=== PATIENT | female | born 1980 | race Caucasian/White ===

== ENCOUNTER 2018-06-21 19:29 | Inpatient (IN) | payer MEDICAID ==
[~2018-06-21] VITALS: Ht 157.5 cm; Wt 94.8 kg
[2018-06-21 19:29] VITALS: BP 126/65
--- NOTE | 2018-06-21 19:29 | NUR ---
PT ELAINE BLS. TAKEN TO BED 3
--- NOTE | 2018-06-21 19:30 | NUR ---
ELAINE. PATIENT PRESENTS TO ED WITH POST STATUS FALL, LEFT KNEE PAIN, DEPRESSION, DIZZINESS.PT WAS FOUND ON THE STREETS AND [facility] STATED THAT SHE FALL ON THE SIDE WALK. PT STATES SHE FELT SHE WAS A LITTLE DIZZY. SHE STATES SHE HAS NOT EATEN AND TOOK METH AROUND 0500. DENIES N/V/D; SKIN IS PINK/WARM/DRY; AAOX4 WITH EVEN AND STEADY GAIT WITH MINOR LIMP ON LEFT SIDE DUE TO PAIN LEVEL 4/10 ON LEFT KNEE; PT STATES SHE IS DEPRESSED DUE TO LOSING HER CHILDREN A FEW MONTHS AGO TO CPS. LUNGS CLEAR BL; HR EVEN AND REGULAR; PT DENIES ANY FEVER, CP, SOB, OR COUGH AT THIS TIME; VSS; PATIENT POSITIONED FOR COMFORT; HOB ELEVATED; BEDRAILS UP X2; BED DOWN. ER MD MADE AWARE OF PT STATUS.
[2018-06-21] MEDS ORDERED: IBUPROFEN 600 MG TAB PO ONE (19:45)
--- NOTE | 2018-06-21 19:45 | NUR ---
Dr. Licea evaluating patient at bedside.
--- NOTE | 2018-06-21 19:55 | NUR ---
LAB AT PT BEDSIDE
[2018-06-21 20:10] LABS: BASOPHILS % (AUTO) 0.5 % (0.0-2.0); EOSINOPHILS # (AUTO) 0.2 K/uL (0-0.4); HEMATOCRIT 21.8 % (36-48); LYMPHOCYTES # (AUTO) 2.3 K/uL (2.5-16.5); LYMPHOCYTES % (AUTO) 36.2 % (20.5-51.1); MEAN CORPUSCULAR HEMOGLOBIN 23 pg (27-31); MEAN CORPUSCULAR HGB CONC 31 g/dL (33-37); MEAN CORPUSCULAR VOLUME 74.8 fL (80-94); MONOCYTES # (AUTO) 0.3 K/uL (0.8-1.0); MONOCYTES % (AUTO) 4.6 % (1.7-9.3); NEUTROPHILS # (AUTO) 3.6 K/uL (1.8-7.7); NEUTROPHILS % (AUTO) 55.7 % (42.2-75.2); PLATELET COUNT (AUTO) 317 K/uL (140-450); RED BLOOD CELL COUNT(AUTO) 2.91 MIL/uL (4.20-5.40); RED CELL DISTRIBUTION WIDTH 18.9 % (11.6-13.7); WHITE BLOOD COUNT (AUTO) 6.4 K/uL (4.8-10.8)
--- NOTE | 2018-06-21 20:20 | NUR ---
PT CAME BACK FROM RADIOLOGY
[2018-06-21 20:24] LABS: HEMOGLOBIN 6.7 g/dL (12.0-16.0)
[2018-06-21 20:33] LABS: ANION GAP 13.3 (8-16); CARBON DIOXIDE 30.2 mmol/L (21-32); CREATININE 1.5 mg/dL (0.6-1.3); POTASSIUM 3.5 mmol/L (3.5-5.1)
[2018-06-21 20:46] LABS: THYROID STIMULATING HORMONE 169.99 uIU/mL (0.34-3.74)
[2018-06-21 20:53] LABS: BARBITURATE, URINE NEG. ng/ml (NEG <=200); BENZODIAZEPINE, URINE NEG. ng/mL (NEG <=200); CANNABINOID, URINE NEG. ng/mL (NEG <=50); COCAINE, URINE NEG. ng/mL (NEG <=300); OPIATE, URINE NEG. ng/mL (NEG <=2000); PHENCYCLIDINE SCREEN,URINE NEG. ng/mL (NEG <=25)
[2018-06-21 20:56] LABS: APPEARANCE,URINE SLIGHTLY HAZY (CLEAR); BLOOD, URINE TRACE (NEGATIVE); COLOR,URINE YELLOW (YELLOW); UGLUCOSE NEGATIVE (NEGATIVE)
[2018-06-21 20:57] LABS: BILIRUBIN,URINE 1+ (NEGATIVE); LEUKOCYTE ESTERASE ,URINE 3+ (NEGATIVE); NITRITE, URINE POSITIVE (NEGATIVE)
[2018-06-21 20:58] LABS: RBC,URINE 11-20 (MOD) /HPF (0-5); WBC,URINE 16-25 (MOD) /HPF (0-5)
[2018-06-21 22:35] VITALS: BP 113/51
[2018-06-21] MEDS ORDERED: ONDANSETRON 4 MG/2 ML VIAL IM/IVP PRN (22:35)
[2018-06-21] MEDS ORDERED: ACETAMINOPHEN 325 MG TAB PO PRN (22:35)
[2018-06-21] MEDS ORDERED: HYDROcodone/APAP 7.5/325 MG 1 TAB PO PRN (22:35)
[2018-06-21] MEDS ORDERED: DOCUSATE SODIUM 100 MG GELCAP PO PRN (22:35)
--- NOTE | 2018-06-21 22:38 | NUR ---
PT WENT TO CT
[2018-06-21] MEDS ORDERED: NACL 0.9% 1,000 ML IV SCH (23:00)
[2018-06-21 23:20] LABS: PROTHROMBIN TIME 10.3 secs (10.8-13.4)
--- NOTE | 2018-06-21 23:30 | NUR ---
ADMITTED A 38F FROM ER. CAME BY ARSEN DUE TO SYMPTOMATIC ANEMIA AND TOXIC ENCEPHALOPATHY. PT IS SOMEWHAT DROWSY BUT AROUSE EASILY WHEN NAME CALLED. ON TELE MONITOR -SR. ABLE TO MOVE FROM GURNEY TO BED. HAS HL ON THE RT AC#18, CLEAR AND PATENT. NO C/O ANY DISCOMFORT NOR PAIN NOTED AT THIS TIME. SKIN INTACT. PLAN OF CARE DISCUSSED AND VERBALIZED UNDERSTANDING. BED ON LOW POSITION. SIDE RAILS ARE UP X2. CALL LIGHT PLACED WITHIN EASY REACH. WILL FOLLOW UP ADMIT ORDERS AND CONTINUE TO MONITOR.
--- NOTE | 2018-06-21 23:30 | NUR ---
Patient will be admitted to care of DR. WEBSTER. Admited to TELEMETRY. Will go to room 110 B. Belongings list completed. Report to FARHANA RIVERA. PT VSS.
--- NOTE | 2018-06-21 23:30 | NUR ---
Pt report given to FARHANA RIVERA. Transfer of care at this time.PT VSS
[2018-06-22] VITALS (8 sets, daily range): BP systolic 113–154; BP diastolic 55–99
[2018-06-22 00:15] LABS: CHOL/HDL RATIO 2.9 (1-4.5); FREE T4 (FREE THYROXINE) 0.26 ng/dL (0.76-1.46); MAGNESIUM 2.2 mg/dL (1.8-2.4); PHOSPHORUS 3.9 mg/dL (2.5-4.9)
[2018-06-22] MEDS ORDERED: MECLIZINE 25 MG TAB PO PRN (00:20)
[2018-06-22] MEDS ORDERED: DEXTROSE 50% 50 ML SYR IVP PRN ×2 (00:25→08:05)
[2018-06-22] MEDS ORDERED: INSULIN LISPRO SLIDING SCALE 100 UNITS/ML VIAL SUBQ PRN (00:25)
--- NOTE | 2018-06-22 00:40 | NUR ---
HH LOW 6.7 AND 21.8 RESPECTIVELY. I UNIT PRBC STARTED AFTER VERIFIED WITH THE PT BY MIGUEL DANIELSBEAVER TRAPPER. PT MADE HIGGINS OF THE POSSIBLE REACTION TO BLOOD . VERBALIZED UNDERSTANDING. VITLA SIGNS TAKEN PRIOR TO STARTING THE BLOOD. WILL CONTINUE TO MONITOR.
[2018-06-22 01:30] LABS: THYROID STIMULATING HORMONE 216.18 uIU/mL (0.34-3.74)
--- NOTE | 2018-06-22 03:25 | NUR ---
I UNIT PRBC TRANSFUSION DONE. NO REACTION NOTED. VITAL SIGNS STABLE.
[2018-06-22] MEDS ORDERED: cefTRIAXone 1,000 MG VIAL ONE (03:26)
--- NOTE | 2018-06-22 05:30 | NUR ---
PT IS ASLEEP. NO S/S OF ANY DISCOMOFRT NOTED. WILL CONTINUE TO MONITOR.
[2018-06-22 05:58] LABS: BASOPHILS # (AUTO) 0.1 K/uL (0.00-0.22); BASOPHILS % (AUTO) 0.9 % (0.0-2.0); EOSINOPHILS # (AUTO) 0.2 K/uL (0-0.4); EOSINOPHILS % (AUTO) 3.8 % (0.0-4.0); HEMATOCRIT 25.2 % (36-48); HEMOGLOBIN 7.8 g/dL (12.0-16.0); LYMPHOCYTES # (AUTO) 2.5 K/uL (2.5-16.5); LYMPHOCYTES % (AUTO) 41.3 % (20.5-51.1); MEAN CORPUSCULAR HEMOGLOBIN 24 pg (27-31); MEAN CORPUSCULAR HGB CONC 31 g/dL (33-37); MEAN CORPUSCULAR VOLUME 75.6 fL (80-94); MONOCYTES # (AUTO) 0.3 K/uL (0.8-1.0); MONOCYTES % (AUTO) 5.7 % (1.7-9.3); NEUTROPHILS # (AUTO) 2.9 K/uL (1.8-7.7); NEUTROPHILS % (AUTO) 48.3 % (42.2-75.2); PLATELET COUNT (AUTO) 297 K/uL (140-450); RED BLOOD CELL COUNT(AUTO) 3.33 MIL/uL (4.20-5.40); RED CELL DISTRIBUTION WIDTH 18.2 % (11.6-13.7); WHITE BLOOD COUNT (AUTO) 6.1 K/uL (4.8-10.8)
[2018-06-22] MEDS: BLOOD GLUCOSE MONITORING 1 DEV DEV FS SCH ×7 (05:58→20:09)
--- NOTE | 2018-06-22 06:00 | NUR ---
BLOOD SUGAR WAS CHECKED THIS AM, RESULT 96. NO INSULIN NEEDED.
[2018-06-22 06:18] LABS: ANION GAP 12.4 (8-16); CARBON DIOXIDE 28.7 mmol/L (21-32); CREATININE 1.2 mg/dL (0.6-1.3); POTASSIUM 3.1 mmol/L (3.5-5.1)
[2018-06-22] MEDS ORDERED: LEVOTHYROXINE 0.05 MG TAB PO SCH (06:30)
--- NOTE | 2018-06-22 06:39 | NUR ---
PATIENT HAS BEEN SCREENED AND CATEGORIZED MODERATE NUTRITION RISK. PATIENT WILL BE SEEN WITHIN 3-5 DAYS OF ADMISSION. 06/23/18-06/25/18 NED STEPHENSON MS, RDN
--- NOTE | 2018-06-22 07:15 | NUR ---
ENDORSED PT IN STABLE CONDITION TO AM NURSE.
--- NOTE | 2018-06-22 07:16 | NUR ---
RECEIVED REPORT FROM ACCOUNT RELATIONSHIP MANAGER NURSE. PT IN STABLE CONDITION. RESPIRATIONS EVEN AND UNLABORED. IV INTACT AND PATENT. SAFETY MEASURES IN PLACE. CALL LIGHT AT BEDSIDE. BED IN LOW POSITION. WILL CONTINUE TO MONITOR.
[2018-06-22] MEDS ORDERED: LEVOTHYROXINE 200 MCG VIAL IV SCH (07:55)
[2018-06-22] MEDS: SODIUM FERRIC GLUCONATE 125 MG in NACL 0.9% 100 ML IV SCH (08:35)
--- NOTE | 2018-06-22 09:00 | NUR ---
GAVE ORDERED DUE MEDICATIONS, PT TOLERATED WELL WILL CONTINUE TO MONITOR.
[2018-06-22] MEDS ORDERED: POTASSIUM CHLORIDE 10 MEQ TABER PO SCH (09:40)
[2018-06-22] MEDS ORDERED: FERROUS GLUCONATE 324 MG TAB PO SCH (09:44)
[2018-06-22] MEDS: SERTRALINE 50 MG TAB PO SCH (09:56)
[2018-06-22] MEDS: DOCUSATE SODIUM 100 MG GELCAP PO SCH (09:56)
--- NOTE | 2018-06-22 11:30 | NUR ---
REATTACHED LEADS FOR DIATHERMY EQUIPMENT REPAIRER. PT LYING ON SIDE SLEEPING IN STABLE CONDITION. WILL CONTINUE TO MONITOR.
--- NOTE | 2018-06-22 14:00 | NUR ---
GAVE PT NEW GOWN PER PT REQUEST. PT LYING IN BED IN STABLE CONDITION. WILL CONTINUE TO MONITOR.
--- NOTE | 2018-06-22 16:10 | NUR ---
PT REQUESTING MEDICATION FOR A RASH ON HER CHEST. NYSTATIN WAS ORDERED. PT IN STABLE CONDITION. WILL CONTINUE TO MONITOR.
[2018-06-22 16:30] LABS: BASOPHILS % (AUTO) 0.6 % (0.0-2.0); EOSINOPHILS # (AUTO) 0.2 K/uL (0-0.4); EOSINOPHILS % (AUTO) 3.6 % (0.0-4.0); LYMPHOCYTES # (AUTO) 2.3 K/uL (2.5-16.5); LYMPHOCYTES % (AUTO) 38.8 % (20.5-51.1); MEAN CORPUSCULAR HEMOGLOBIN 24 pg (27-31); MEAN CORPUSCULAR HGB CONC 32 g/dL (33-37); MEAN CORPUSCULAR VOLUME 75.5 fL (80-94); MONOCYTES # (AUTO) 0.4 K/uL (0.8-1.0); MONOCYTES % (AUTO) 6.3 % (1.7-9.3); NEUTROPHILS % (AUTO) 50.7 % (42.2-75.2); PLATELET COUNT (AUTO) 302 K/uL (140-450); RED BLOOD CELL COUNT(AUTO) 3.31 MIL/uL (4.20-5.40); RED CELL DISTRIBUTION WIDTH 18.5 % (11.6-13.7); WHITE BLOOD COUNT (AUTO) 5.9 K/uL (4.8-10.8)
[2018-06-22] MEDS: FERROUS GLUCONATE 324 MG TAB PO SCH (16:45)
--- NOTE | 2018-06-22 17:15 | NUR ---
PT VISITING WITH FAMILY. PT IN STABLE CONDITION. WILL CONTINUE TO MONITOR.
--- NOTE | 2018-06-22 19:25 | NUR ---
GAVE REPORT TO NIGHT NURSE FOR CONTINUITY OF CARE. PT IN STABLE CONDITION.
--- NOTE | 2018-06-22 19:26 | NUR ---
RECEIVED BEDSIDE REPORT. PT IS A&OX4. RESPIRATIONS ARE EQUAL AND UNLABORED. DENIES ANY SOB. REPORT SOME DISCOMFORT BUT IS TOLERABLE. SALINE LOCK ON RAC 18G. CURRENTLY ON ANTIBIOTICS FOR UTI. HAS A FUNGAL SKIN INFECTION ON CHEST. PLAN OF CARE WAS DISCUSSED WITH PATIENT. SAFETY MEASURES ARE IN PLACE. CALL LIGHT WITHIN REACH.
[2018-06-22] MEDS: NYSTATIN CRE 100 MU/GM 15 GM TUBE TP SCH (20:11)
--- NOTE | 2018-06-22 20:11 | NUR ---
DUE MEDICATION GIVEN. PT TOLERATED WELL. VITAL SIGNS ARE WITHIN NORMAL LIMITS. ALL SAFETY MEASURES ARE IN PLACE. WILL CONTINUE TO MONITOR.
--- NOTE | 2018-06-23 00:04 | NUR ---
ROCEPHIN INFUSING PER ORDERS. VITAL SIGNS ARE WITHIN NORMAL LIMITS. SAFETY MEASURES ARE IN PLACE. WILL CONTINUE TO MONITOR.
--- NOTE | 2018-06-23 03:08 | NUR ---
PT SLEEPING COMFORTABLY IN BED. RESPIRATIONS ARE EQUAL AND UNLABORED. CALL LIGHT WITHIN REACH.
[2018-06-23] MEDS: BLOOD GLUCOSE MONITORING 1 DEV DEV FS SCH ×2 (05:42→05:43)
--- NOTE | 2018-06-23 05:42 | NUR ---
DUE MEDICATION GIVEN. BLOOD SUGAR 73 PT IS A&OX4. APPLE JUICE GIVEN. SAFETY MEASURES ARE IN PLACE. CALL LIGHT WITHIN REACH.
[2018-06-23 06:17] LABS: BASOPHILS # (AUTO) 0.1 K/uL (0.00-0.22); EOSINOPHILS # (AUTO) 0.2 K/uL (0-0.4); HEMATOCRIT 26.5 % (36-48); HEMOGLOBIN 8.3 g/dL (12.0-16.0); LYMPHOCYTES # (AUTO) 2.6 K/uL (2.5-16.5); LYMPHOCYTES % (AUTO) 41.7 % (20.5-51.1); MEAN CORPUSCULAR HEMOGLOBIN 24 pg (27-31); MEAN CORPUSCULAR HGB CONC 31 g/dL (33-37); MEAN CORPUSCULAR VOLUME 75.9 fL (80-94); MONOCYTES # (AUTO) 0.4 K/uL (0.8-1.0); MONOCYTES % (AUTO) 5.6 % (1.7-9.3); NEUTROPHILS # (AUTO) 3.1 K/uL (1.8-7.7); NEUTROPHILS % (AUTO) 48.7 % (42.2-75.2); PLATELET COUNT (AUTO) 302 K/uL (140-450); RED BLOOD CELL COUNT(AUTO) 3.49 MIL/uL (4.20-5.40); RED CELL DISTRIBUTION WIDTH 18.5 % (11.6-13.7); WHITE BLOOD COUNT (AUTO) 6.3 K/uL (4.8-10.8)
[2018-06-23] MEDS ORDERED: LEVOTHYROXINE 0.05 MG TAB PO SCH (06:30)
[2018-06-23 07:10] LABS: ANION GAP 11.6 (8-16); CARBON DIOXIDE 30.1 mmol/L (21-32); CREATININE 1.2 mg/dL (0.6-1.3); POTASSIUM 3.7 mmol/L (3.5-5.1)
[2018-06-23] MEDS ORDERED: DOCU-299 PO (07:15)
[2018-06-23] MEDS ORDERED: LEVO0.2T5 PO (07:15)
[2018-06-23] MEDS ORDERED: FERR324T11 PO (07:15)
--- NOTE | 2018-06-23 07:20 | NUR ---
ENDORSED TO DAY SHIFT RN. PT STABLE.
--- NOTE | 2018-06-23 07:21 | NUR ---
RECEIVED REPORT FROM PM NURSE AT BEDSIDE. PT LYING ON HER BED. ALERT AND AWAKE. HAS IV ACCESS ON RT AC 18 G, SALINE LOCK. PT ON FALL PRECAUTION. NO SIGN OF DISTRESS NOTED. UPDATED BOARD AND INTRODUCED SELF. CALL LIGHT WITHIN PT REACH. WILL CONTINUE TO MONITOR PT.
[2018-06-23 07:45] LABS: MAGNESIUM 2.1 mg/dL (1.8-2.4); PHOSPHORUS 3.1 mg/dL (2.5-4.9)
[2018-06-23 08:00] VITALS: BP 129/82
[2018-06-23 08:30] LABS: THYROID STIMULATING HORMONE 170.04 uIU/mL (0.34-3.74)
[2018-06-23] MEDS: SERTRALINE 50 MG TAB PO SCH (08:40)
[2018-06-23] MEDS: DOCUSATE SODIUM 100 MG GELCAP PO SCH (08:40)
[2018-06-23] MEDS: FERROUS GLUCONATE 324 MG TAB PO SCH (08:40)
[2018-06-23] MEDS: NYSTATIN CRE 100 MU/GM 15 GM TUBE TP SCH (08:41)
--- NOTE | 2018-06-23 09:00 | NUR ---
CHECKED ON PT, LYING ON HER BED. ADMINISTERED [id number] MEDS ORDERED. INFORMED PT THAT [facility] WILL WORK ON HER DISCHARGED PAPER. PT VERBALIZED UNDERSTANDING. WILL CONTINUE TO MONITOR PT.
--- NOTE | 2018-06-23 09:00 | NUR ---
ENDORSED PT TO PM NURSE AT BEDSIDE. PT LYING ON HER BED. ADMINISTERED MEDS ORDERED. TOLERATED WELL. INFORMED HER THAT SHE IS GOING TO DISCHARGED TODAY. WILL WORK ON HER DC PAPER. VERBALIZED UNDERSTANDING OF TEACHING. NO SIGN OF DISTRESS NOTED. WILL CONTINUE TO MONITOR PT. Addendum: 06/23/18 at 1231 by Easton Gonzales RN INTAL WRITING DOD NOT GOT DELETED.
[2018-06-23] MEDS: SODIUM FERRIC GLUCONATE 125 MG in NACL 0.9% 100 ML IV SCH (09:40)
[2018-06-24 07:12] LABS: FOLIC ACID 10.6 ng/mL (>3.0)
[2018-06-25 07:12] LABS: T3 UPTAKE 14 % (24-39); T4 (THYROXINE) <0.5 ug/dL (4.5-12.0)
== END 2018-06-23 12:35 | disposition home or self-care (01) | DRG 812 ==
LOC: MED 19:29 → MTU 22:43
PROVIDERS: ADMIT General Practice; ATTEND General Practice
PROC: 30233N1 Transfusion of Nonautologous Red Blood Cells into Peripheral Vein, Percutaneous Approach (ICD-10-PCS; principal; 2018-06-22)
DX: T43.621A Poisoning by amphetamines, accidental (unintentional), initial encounter (principal); N17.0 Acute kidney failure with tubular necrosis; G92 Toxic encephalopathy; E11.65 Type 2 diabetes mellitus with hyperglycemia; D64.9 Anemia, unspecified; S80.02XA Contusion of left knee, initial encounter; G93.89 Other specified disorders of brain; E03.9 Hypothyroidism, unspecified; N39.0 Urinary tract infection, site not specified; F15.129 Other stimulant abuse with intoxication, unspecified; E87.6 Hypokalemia; F32.9 Major depressive disorder, single episode, unspecified; E78.00 Pure hypercholesterolemia, unspecified; W18.39XA Other fall on same level, initial encounter; F41.9 Anxiety disorder, unspecified; F17.210 Nicotine dependence, cigarettes, uncomplicated; E78.2 Mixed hyperlipidemia; Z91.19 Patient's noncompliance with other medical treatment and regimen; Z98.51 Tubal ligation status; Y93.89 Activity, other specified; Y92.89 Other specified places as the place of occurrence of the external cause; Y99.8 Other external cause status
CPT/HCPCS: 36415; 70450; 71045; 73562; 80048; 80305; 81001; 82150; 82607; 82728; 82746; 82948; 83036; 83540; 83690; 83735; 83880; 84100; 84436; 84439; 84443; 84479; 84484; 84703; 85025; 85045; 85610; 85730; 86886; 86900; 86901; 86920; 87081; 87086; 87186; 93880; 99285; G0482; J0696; J1815; J2916; J3490; J7030; J7060; P9016; Q0092